=== PATIENT | male | born 1960 | race Asian ===

== ENCOUNTER 2016-08-15 14:41 | Emergency (ER) | payer SELFPAY ==
[~2016-08-15] VITALS: Ht 175.3 cm; Wt 71.8 kg
[~2016-08-15 14:41] MED LIST: BENZ2TAB10 PO; DIPH50 PO; RISP4 PO
[2016-08-15] MEDS ORDERED: PERTUSS(ACELL),DIPH,TET VAC/PF 0.5 ML VIAL IM ONE (17:30)
[2016-08-15 18:58] VITALS: BP 115/80
== END 2016-08-15 19:07 | disposition home or self-care (01) ==
LOC: EMS 14:48
DX: S61.211A Laceration without foreign body of left index finger without damage to nail, initial encounter (principal); F17.210 Nicotine dependence, cigarettes, uncomplicated; Z88.6 Allergy status to analgesic agent; W45.8XXA Other foreign body or object entering through skin, initial encounter; Y93.89 Activity, other specified; Y92.89 Other specified places as the place of occurrence of the external cause; Y99.8 Other external cause status
CPT/HCPCS: 90471; 90715; 99283

== ENCOUNTER 2019-05-21 21:06 | Emergency (ER) | payer MEDICAID ==
[~2019-05-21] VITALS: Ht 172.7 cm; Wt 68.2 kg
[2019-05-21] MEDS ORDERED: ONDANSETRON HCL 4 MG/2 ML VIAL IVP ONE (22:15)
[2019-05-21] MEDS ORDERED: LIDOCAINE 2% VISCOUS 15 ML SOLUTION UDCUP PO ONE (22:15)
[2019-05-21] MEDS ORDERED: PHENOBARB/HYOSCY/ATROPINE/SCOP 5 ML UDCUP ELIXIR PO ONE (22:15)
[2019-05-21] MEDS ORDERED: MAG HYDROX/AL HYDROX/SIMETH ES 30 ML SUSPENSION UDCUP PO ONE (22:15)
[2019-05-21] MEDS ORDERED: SODIUM CHLORIDE 0.9% 1,000 ML IV ONE (22:15)
[2019-05-21 22:28] LABS: BASOPHILS % (AUTO) 0.7 % (0.0-2.0); EOSINOPHILS % (AUTO) 3.4 % (1.0-6.0); HEMATOCRIT 43.4 % (41-53); HEMOGLOBIN 14.7 g/dL (13.5-17.5); LYMPHOCYTES # (AUTO) 0.9 K/uL (1.0-4.8); LYMPHOCYTES % (AUTO) 11.8 % (22.0-44.0); MEAN CORPUSCULAR HEMOGLOBIN 31.2 pg (26.0-34.0); MEAN CORPUSCULAR HGB CONC 33.8 G/dL (31.0-37.0); MEAN CORPUSCULAR VOLUME 92 fL (80-100); MONOCYTES # (AUTO) 0.7 K/uL (0.1-1.0); MONOCYTES % (AUTO) 9.6 % (2.0-9.0); NEUTROPHILS # (AUTO) 5.7 K/uL (1.8-7.7); NEUTROPHILS % (AUTO) 74.5 % (40.0-70.0); PLATELET COUNT (AUTO) 300 K/uL (150-450); RED BLOOD CELL COUNT(AUTO) 4.71 MIL/uL (4.50-5.90)
[2019-05-21 22:40] LABS: ANION GAP 7 mmol/L (8-16); CALCIUM, TOTAL 8.8 mg/dL (8.8-10.5); CARBON DIOXIDE 27 mmol/L (22-29); CHLORIDE 101 mmol/L (98-107); GLOMERULAR FILTR. RATE CALC 52 mL/min (>60); GLUCOSE,RANDOM 91 mg/dL (70-110); POTASSIUM 3.9 mmol/L (3.5-5.1); SODIUM SERUM 135 mmol/L (136-145); UREA NITROGEN, BLOOD 32 mg/dL (7-18)
[2019-05-21 22:47] LABS: ALANINE AMINOTRANSFERASE 30 U/L (12-78); ALBUMIN 3.4 g/dL (3.4-5.0); ALKALINE PHOSPHATASE 83 U/L (46-116); ASPARTATE AMINOTRANSFERASE 25 U/L (15-37); BILIRUBIN,TOTAL 0.3 mg/dL (0.1-1.0); LIPASE 368 U/L (73-393); TOTAL PROTEIN, SERUM 7.2 g/dL (6.4-8.2)
[2019-05-22 01:25] LABS: APPEARANCE,URINE CLEAR (CLEAR); BILIRUBIN,URINE NEGATIVE (NEGATIVE); GLUCOSE, URINE (UA) NEGATIVE (NEGATIVE); KETONES,URINE NEGATIVE (NEGATIVE); LEUKOCYTE ESTERASE ,URINE NEGATIVE (NEGATIVE); NITRATE,URINE NEGATIVE (NEGATIVE); OCCULT BLOOD,URINE NEGATIVE (NEGATIVE); PH,URINE 5.5 (5.0-8.0); PROTEIN,URINE NEGATIVE (NEGATIVE); UROBILINOGEN,URINE 0.2 mg/dL (<=1.0)
[2019-05-22 01:30] LABS: AMPHET/METH SCREEN,URINE POSITIVE (NEGATIVE); BARBITURATE SCREEN, URINE NEGATIVE (NEGATIVE); BENZODIAZEPINES SCREEN,URINE NEGATIVE (NEGATIVE); CANNABINOID SCREEN,URINE NEGATIVE (NEGATIVE); COCAINE SCREEN,URINE NEGATIVE (NEGATIVE); METHADONE SCREEN, URINE NEGATIVE (NEGATIVE); OPIATE SCREEN,URINE NEGATIVE (NEGATIVE)
[2019-05-22 01:35] LABS: PHENCYCLIDINE SCREEN,URINE NEGATIVE (NEGATIVE)
[2019-05-22 01:44] LABS: BACTERIA,URINE None Seen /HPF (None Seen); RBC,URINE None Seen /HPF (0-2); SQUAMOUS EPITHELIAL CELL,UR None Seen /LPF (None Seen); WBC,URINE 0-2 /HPF (0-5)
[2019-05-22 03:22] VITALS: BP 107/87
== END 2019-05-22 03:46 | disposition home or self-care (01) ==
LOC: EMS 21:09
DX: K29.70 Gastritis, unspecified, without bleeding (principal); R07.89 Other chest pain; F15.10 Other stimulant abuse, uncomplicated; R11.10 Vomiting, unspecified; F32.9 Major depressive disorder, single episode, unspecified; F20.9 Schizophrenia, unspecified; F17.210 Nicotine dependence, cigarettes, uncomplicated; Z79.899 Other long term (current) drug therapy; Z88.6 Allergy status to analgesic agent
CPT/HCPCS: 36415; 71045; 80053; 80307; 81001; 83690; 84484; 85025; 93005; 96361; 96374; 99285; G0480; J2405; J7030

== ENCOUNTER 2022-08-23 12:12 | Emergency (ER) | payer MEDICAID, OTHER ==
[~2022-08-23] VITALS: Ht 172.7 cm; Wt 65.9 kg
[2022-08-23] MEDS ORDERED: CEPHALEXIN MONOHYDRATE 500 MG CAPSULE PO ONE (14:30)
[2022-08-23] MEDS ORDERED: DOXYCYCLINE HYCLATE 100 MG TABLET PO ONE (14:30)
[2022-08-23] MEDS ORDERED: LIDOCAINE 1% 10 ML VIAL SQ ONE (14:30)
[2022-08-23] MEDS ORDERED: HYDROCODONE/ACETAMINOPHEN 5-325 MG TABLET PO ONE (14:30)
[2022-08-23 15:00] VITALS: BP 158/103
[2022-08-23] MEDS ORDERED: HYDR-4723 PO (15:25)
[2022-08-23] MEDS ORDERED: CEPH-558 PO (15:25)
[2022-08-23] MEDS ORDERED: DOXY-354 PO (15:25)
[2022-08-23] MEDS ORDERED: PERTUSS(ACELL),DIPH,TET VAC/PF 0.5 ML SYRINGE IM. ONE (15:30)
== END 2022-08-23 17:08 | disposition home or self-care (01) ==
LOC: EMS 12:16
DX: L02.511 Cutaneous abscess of right hand (principal); S61.230A Puncture wound without foreign body of right index finger without damage to nail, initial encounter; S60.021A Contusion of right index finger without damage to nail, initial encounter; S60.031A Contusion of right middle finger without damage to nail, initial encounter; F31.9 Bipolar disorder, unspecified; I10 Essential (primary) hypertension; F20.9 Schizophrenia, unspecified; F17.210 Nicotine dependence, cigarettes, uncomplicated; Z88.6 Allergy status to analgesic agent; W22.8XXA Striking against or struck by other objects, initial encounter; Y93.89 Activity, other specified; Y92.89 Other specified places as the place of occurrence of the external cause; Y99.8 Other external cause status
CPT/HCPCS: 99284; 10060; 73140; 90715; 90471; J3490

== ENCOUNTER 2023-07-13 16:19 | Emergency (ER) | payer OTHER ==
[~2023-07-13] VITALS: Ht 177.8 cm; Wt 75.0 kg
[~2023-07-13 16:19] MED LIST changes: -BENZ2TAB10 PO; +CEPH-558 PO; -DIPH50 PO; +DOXY-354 PO; +HYDR-4723 PO; -RISP4 PO
[2023-07-13 16:31] VITALS: BP 142/84; PULSE 84; RESP 18; TEMP 98.2
== END 2023-07-13 17:15 | disposition left against medical advice (07) ==
LOC: EMS 16:21
DX: I10 Essential (primary) hypertension (principal); Z53.21 Procedure and treatment not carried out due to patient leaving prior to being seen by health care provider
CPT/HCPCS: 93005; 99281; Z7502

== ENCOUNTER 2023-09-25 16:52 | Emergency (ER) | payer OTHER ==
[~2023-09-25] VITALS: Ht 175.3 cm; Wt 69.1 kg
[~2023-09-25 16:52] MED LIST changes: -CEPH-558 PO; -DOXY-354 PO
[2023-09-25 16:58] VITALS: BP 135/79; PULSE 68; RESP 18; TEMP 97.7
[2023-09-25 17:09] LABS: COVID AG,FIA SOURCE NASAL SWAB
[2023-09-25 17:26] LABS: SARS-COV2 (COVID) ANTIGEN,FIA Negative (Negative)
[2023-09-25 17:28] LABS: INFLUENZA TYPE A NEGATIVE FOR TYPE A (NEGATIVE); INFLUENZA TYPE B NEGATIVE FOR TYPE B (NEGATIVE)
== END 2023-09-25 21:30 | disposition home or self-care (01) ==
LOC: EMS 16:54
DX: R05.9 Cough, unspecified (principal); R51.9 Headache, unspecified; R42 Dizziness and giddiness; Z53.21 Procedure and treatment not carried out due to patient leaving prior to being seen by health care provider
CPT/HCPCS: 87804; 99281; Z7502